=== PATIENT | female | born 1975 ===

== ENCOUNTER 2016-10-01 10:50 | Emergency (ER) | payer SELFPAY ==
[2016-10-01 10:56] VITALS: BP 114/76; PULSE 78; TEMP 98; O2SAT 98; BMI 25.2
[2016-10-01 11:06] VITALS: RESP 18
--- NOTE | 2016-10-01 11:25 | ED PDOC ---
HPI: Female Pain Time Seen by Provider: 10/01/16 11:24 Chief Complaint (Nursing): Female Genitourinary Chief Complaint (Provider): sore throat/abdominal pain/vaginal discharge History Per: Patient (41 y/o female here for multiple complaints. Notes dysuria /increased vaginal discharge/suprapubic abdominal pain. Notes mild sore throat. Denies any fevers/chills but notes bodyaches as well.) Past Medical History Reviewed: Historical Data, Nursing Documentation, Vital Signs Vital Signs: Last Vital Signs Temp 98 F 10/01/16 11:03 Pulse 78 10/01/16 11:03 Resp 18 10/01/16 11:03 BP 114/76 10/01/16 11:03 Pulse Ox 98 10/01/16 11:03 - Family History Family History: States: No Known Family Hx - Home Medications Home Medications: Ambulatory Orders Medication Instructions Recorded Cetirizine Hydrochloride [Zyrtec] 10 mg PO DAILY #10 tab 01/07/15 Prednisone 10 mg PO TID #15 tab 01/07/15 Ciprofloxacin HCl [Cipro] 500 mg PO BID #6 tablet 10/01/16 Metronidazole [Flagyl] 500 mg PO BID #14 tablet 10/01/16 Naproxen [Naprosyn Tab] 375 mg PO Q8 PRN #21 tab 10/01/16 - Allergies Allergies/Adverse Reactions: Allergies Allergy/AdvReac Type Severity Reaction Status Date / Time No Known Allergies Allergy Verified 01/07/15 10:48 Review of Systems ROS Statement: Except As Marked, All Systems Reviewed And Found Negative Physical Exam - Reviewed Nursing Documentation Reviewed: Yes Vital Signs Reviewed: Yes - Physical Exam Appears: Positive for: Well, Non-toxic, No Acute Distress Head Exam: Positive for: ATRAUMATIC, NORMAL INSPECTION, NORMOCEPHALIC Skin: Positive for: Normal Color, Warm, DRY Eye Exam: Positive for: EOMI, Normal appearance, PERRL ENT: Positive for: Normal ENT Inspection Neck: Positive for: Normal, Painless ROM Cardiovascular/Chest: Positive for: Regular Rate, Rhythm Respiratory: Positive for: CNT, Normal Breath Sounds Gastrointestinal/Abdominal: Positive for: Normal Exam, Bowel Sounds, Soft Pelvic Exam: Positive for: Discharge (thin, nonodorous vaginal discharge. No CMT. Nontender adnexa) Back: Positive for: Normal Inspection Extremity: Positive for: Normal ROM Neurologic/Psych: Positive for: Alert, Oriented - Laboratory Results Urine POC: Negative Urine dip results: Positive for: Leukocyte Esterase. Negative for: Blood, Nitrate, Ketones, Glucose, Bilirubin, Protein - ECG O2 Sat by Pulse Oximetry: 98 Disposition - Clinical Impression Clinical Impression: Urinary tract infection, Vaginitis - Patient ED Disposition Is Patient to be Admitted: No - Disposition [facility] Disposition: Routine/Home Disposition Time: 12:25 Condition: FAIR Prescriptions: Ciprofloxacin HCl [Cipro] 500 mg PO BID #6 tablet Metronidazole [Flagyl] 500 mg PO BID #14 tablet Naproxen [Naprosyn Tab] 375 mg PO Q8 PRN #21 tab PRN Reason: Pain, Moderate (4-7) Instructions: Urinary Tract Infection in Women (DC), Vaginitis (ED) Forms: [facility] ED School/Work Excuse Print Language: MALAY
[2016-10-01 11:58] LABS: SQUAMOUS EPITHIAL 7 /hpf (0-5); URINE BACTERIA OCC (<OCC); URINE BILIRUBIN NEGATIVE (NEGATIVE); URINE BLOOD NEGATIVE (NEGATIVE); URINE CLARITY CLOUDY (Clear); URINE COLOR YELLOW (YELLOW); URINE GLUCOSE (UA) NEG (Normal); URINE LEUKOCYTE ESTERASE LARGE Leu/uL (Negative); URINE NITRATE NEGATIVE (NEGATIVE); URINE PROTEIN 30 mg/dL (NEGATIVE); URINE UROBILINOGEN 0.2-1.0 mg/dL (0.2-1.0)
== END 2016-10-01 13:16 | disposition home or self-care (01) ==
LOC: H.ER 10:50
DX: N39.0 Urinary tract infection, site not specified (principal); N76.0 Acute vaginitis